=== PATIENT | male | born 1945 | race Caucasian/White ===

== ENCOUNTER 2018-08-30 09:21 | Emergency (ER) | payer MEDICARE, OTHER ==
[~2018-08-30] VITALS: Wt 78.0 kg
[~2018-08-30 09:21] MED LIST: ASPI-535 PO; ATOR80TA18 PO; BENA20TA4 PO; METO100T PO; OMEP20TA42 PO; SITA100T11 PO; TAMS0.4C2 PO
[2018-08-30 09:27] VITALS: BP 156/80; PULSE 85; RESP 18
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
[2018-08-30] MEDS ORDERED: ACET325T33 PO (11:05)
== END 2018-08-30 11:15 | disposition home or self-care (01) ==
LOC: FTE 09:21
DX: R51 Headache (principal); I10 Essential (primary) hypertension; I25.2 Old myocardial infarction; E11.9 Type 2 diabetes mellitus without complications; I25.10 Atherosclerotic heart disease of native coronary artery without angina pectoris; Z79.82 Long term (current) use of aspirin; Z86.73 Personal history of transient ischemic attack (TIA), and cerebral infarction without residual deficits
CPT/HCPCS: 72040; 82962